=== PATIENT | female | born 1990 | race African-American/Black ===

== ENCOUNTER 2016-10-25 07:51 | Emergency (ER) | payer MEDICAID ==
[2016-10-25 08:21] LABS: BASOPHILS 0.3 % (0-2); EOSINOPHILS 2.2 % (0-7); HEMATOCRIT 37.4 % (36.0-48.0); HEMOGLOBIN 12.5 g/dL (12-16); IMMATURE GRANULOCYTES 0.7 % (0-5); LYMPHOCYTES 18.5 % (15-50); MCH 28.7 pg (26.0-34.0); MCHC 33.4 g/dL (31.0-37.0); MCV 85.8 fL (80.0-100.0); MEAN PLATELET VOLUME 9.5 fL (7.4-10.4); MONOCYTES 4.6 % (2-11); NEUTROPHILS 73.7 % (40-80); PLATELET COUNT 327 10x3/uL (130-400); RBC 4.36 10x6/uL (4.00-5.40); RDW 13.9 % (11.5-14.5); WBC 10.6 10x3/uL (4.8-10.8)
[2016-10-25 08:32] LABS: HCG URINE NEGATIVE (NEGATIVE)
[2016-10-25 08:43] LABS: ALKALINE PHOSPHATASE 101 U/L (46-116); ALT (SGPT) 18 U/L (10-68); BILIRUBIN - TOTAL 0.51 mg/dL (0.2-1.3); CALC OSMOLALITY 281 mosm/kg (275-300); CALCIUM 8.6 mg/dL (8.5-10.1); CARBON DIOXIDE 25.5 mmol/L (21.0-32.0); CHLORIDE - SERUM 106 mmol/L (98-107); CREATININE - SERUM 0.8 mg/dL (0.6-1.3); GLUCOSE 129 mg/dL (74-106); POTASSIUM - SERUM 4.1 mmol/L (3.5-5.1); PROTEIN - SERUM 7.4 g/dL (6.4-8.2); SODIUM 139 mmol/L (136-145); UREA NITROGEN 18 mg/dL (7-18); eGFR NON AFRICAN AMERICAN > 90 mL/min (90-120)
[2016-10-25 08:46] LABS: AMYLASE - SERUM 60 U/L (25-115); LIPASE 140 U/L (73-393)
[2016-10-25 08:57] LABS: TROPONIN-I < 0.017 ng/mL (0.000-0.060)
[2016-10-25 08:58] LABS: APPEARANCE HAZY (CLEAR); BILIRUBIN NEGATIVE (NEGATIVE); COLOR YELLOW (YELLOW); GLUCOSE NEGATIVE (NEGATIVE); KETONE NEGATIVE (NEGATIVE); LEUKOCYTE ESTERASE TRACE (NEGATIVE); NITRITE NEGATIVE (NEGATIVE); PROTEIN NEGATIVE (NEGATIVE); SPECIFIC GRAVITY 1.015 (1.005-1.020)
[2016-10-25 09:02] LABS: BACTERIA MANY /hpf (NONE SEEN); GRANULAR CAST RARE /lpf (NONE SEEN); MUCUS <1+ /lpf (NONE SEEN); RED CELLS - URINE 0-5 /hpf (0-5); WHITE CELLS - URINE 0-5 /hpf (0-5)
[2016-10-28 00:53] VITALS: BMI 47.1
== END 2016-10-25 10:13 | disposition home or self-care (01) ==
LOC: D.ER 07:51
PROVIDERS: Emergency Medicine
DX: K80.50 Calculus of bile duct without cholangitis or cholecystitis without obstruction (principal); R11.0 Nausea; R10.9 Unspecified abdominal pain

== ENCOUNTER 2016-10-27 20:46 | Inpatient (IN) | payer MEDICAID ==
[~2016-10-27] VITALS: Ht 162.6 cm; Wt 123.4 kg
[2016-10-27 21:41] LABS: BASOPHILS 0.1 % (0-2); IMMATURE GRANULOCYTES 0.4 % (0-5); LYMPHOCYTES 16.2 % (15-50); MCH 28.4 pg (26.0-34.0); MCHC 33.3 g/dL (31.0-37.0); MCV 85.3 fL (80.0-100.0); MEAN PLATELET VOLUME 9.6 fL (7.4-10.4); MONOCYTES 4.7 % (2-11); NEUTROPHILS 77.6 % (40-80); RBC 4.57 10x6/uL (4.00-5.40); WBC 13.9 10x3/uL (4.8-10.8)
[2016-10-27 21:53] LABS: PLATELET COUNT 400 10x3/uL (130-400)
[2016-10-27 21:54] LABS: ALBUMIN 3.2 g/dL (3.4-5.0); ALKALINE PHOSPHATASE 272 U/L (46-116); ALT (SGPT) 334 U/L (10-68); BILIRUBIN - TOTAL 4.16 mg/dL (0.2-1.3); CALC OSMOLALITY 281 mosm/kg (275-300); CALCIUM 9.1 mg/dL (8.5-10.1); CARBON DIOXIDE 27.6 mmol/L (21.0-32.0); CHLORIDE - SERUM 103 mmol/L (98-107); CREATININE - SERUM 0.8 mg/dL (0.6-1.3); GLUCOSE 127 mg/dL (74-106); POTASSIUM - SERUM 3.3 mmol/L (3.5-5.1); PROTEIN - SERUM 7.7 g/dL (6.4-8.2); SODIUM 141 mmol/L (136-145); UREA NITROGEN 9 mg/dL (7-18); eGFR NON AFRICAN AMERICAN > 90 mL/min (90-120)
[2016-10-27 22:04] LABS: APPEARANCE CLEAR (CLEAR); BILIRUBIN NEGATIVE (NEGATIVE); COLOR DK YELLOW (YELLOW); GLUCOSE NEGATIVE (NEGATIVE); KETONE NEGATIVE (NEGATIVE); LEUKOCYTE ESTERASE NEGATIVE (NEGATIVE); NITRITE NEGATIVE (NEGATIVE); PROTEIN TRACE mg/dL (NEGATIVE); RED CELLS - URINE 0-5 /hpf (0-5); SPECIFIC GRAVITY 1.015 (1.005-1.020); UROBILINOGEN NORMAL (NORMAL); WHITE CELLS - URINE 0-5 /hpf (0-5)
[2016-10-27 22:05] LABS: BACTERIA MODERATE /hpf (NONE SEEN); EPITHELIAL CELLS 0-5 /hpf (0-5)
[2016-10-27 23:08] LABS: AMYLASE - SERUM 2934 U/L (25-115); LIPASE 11618 U/L (73-393)
[2016-10-28] VITALS (7 sets, daily range): BP systolic 137–171; BP diastolic 82–97; Ht 162.6 cm; Wt 123.4 kg
--- NOTE | 2016-10-28 03:55 | NUR ---
EYES CLOSED RESPIRATIONS WITH EASE AND UNLABORED. SR UP X2 CALL LIGHT WITHIN REACH REMAINS NPO AT THIS TIME. ASSESSMENT DONE PER ADMIT PACKET.
--- NOTE | 2016-10-28 06:51 | NUR ---
REC'D REPORT FROM [facility] HEARD IN ER. REC'D VIA WHEELCHAIR, ALERT AND ORIENTED X4. REPORTED PAIN /. IV LEFT AC 20G WITH D5LR RUNNING. DENIED FURTHER NEEDS AT THIS TIME. INSTRUCTED TO CALL IF NEEDED ANYTHING, VERBALIZED UNDERSTANDING. BED LOW, LOCKED, CALL LIGHT IN REACH.
--- NOTE | 2016-10-28 07:19 | NUR ---
PATIENT RESTING IN HER BED. PATIENT IS AWAKE, ALERT, AND ORIENTED X4. FIRST OFFICER MORPHINE IN USE FOR PAIN CONTROL. PATIENT COMPLAINS OF NAUSEA, BUT NO EMESIS NOTED. CALL LIGHT IN PATIENT'S REACH. WILL MONITOR PATIENT.
[2016-10-28 08:39] LABS: BASOPHILS 0.1 % (0-2); EOSINOPHILS 0.7 % (0-7); HEMATOCRIT 35.7 % (36.0-48.0); HEMOGLOBIN 11.8 g/dL (12-16); IMMATURE GRANULOCYTES 0.3 % (0-5); LYMPHOCYTES 19.2 % (15-50); MCH 28.3 pg (26.0-34.0); MCHC 33.1 g/dL (31.0-37.0); MCV 85.6 fL (80.0-100.0); MEAN PLATELET VOLUME 9.2 fL (7.4-10.4); NEUTROPHILS 76.7 % (40-80); PLATELET COUNT 334 10x3/uL (130-400); RBC 4.17 10x6/uL (4.00-5.40); RDW 14.2 % (11.5-14.5)
[2016-10-28 08:55] LABS: WBC 8.7 10x3/uL (4.8-10.8)
[2016-10-28 09:13] LABS: ALBUMIN 2.6 g/dL (3.4-5.0); ALKALINE PHOSPHATASE 216 U/L (46-116); ALT (SGPT) 280 U/L (10-68); BILIRUBIN - TOTAL 1.54 mg/dL (0.2-1.3); CALC OSMOLALITY 276 mosm/kg (275-300); CALCIUM 8.2 mg/dL (8.5-10.1); CARBON DIOXIDE 27.1 mmol/L (21.0-32.0); CHLORIDE - SERUM 105 mmol/L (98-107); CREATININE - SERUM 0.8 mg/dL (0.6-1.3); GLUCOSE 119 mg/dL (74-106); POTASSIUM - SERUM 3.5 mmol/L (3.5-5.1); PROTEIN - SERUM 6.5 g/dL (6.4-8.2); SODIUM 139 mmol/L (136-145); UREA NITROGEN 7 mg/dL (7-18); eGFR NON AFRICAN AMERICAN > 90 mL/min (90-120)
[2016-10-28 09:15] LABS: BILIRUBIN - DIRECT 0.64 mg/dL (0.00-0.30)
[2016-10-28 09:16] LABS: LIPASE 3731 U/L (73-393)
[2016-10-28 09:18] LABS: AMYLASE - SERUM 613 U/L (25-115)
--- NOTE | 2016-10-28 10:03 | NUR ---
PATIENT RESTING QUIETLY WITH HER EYES CLOSED. PATIENT AWAKENS EASLY TO VERBAL STIMULI. ASSESSMENT COMPLETED. SEE FLOWSHEET FOR ANY DETAILS. PRODUCT MARKETING ENGINEER MORPHINE IN USE FOR PAIN CONTROL. PATIENT DENIES ANY NEEDS AT PRESENT TIME. CALL LIGHT IN PATIENT'S REACH. WILL MONITOR PATIENT.
--- NOTE | 2016-10-28 15:20 | NUR ---
PATIENT RESTING QUIETLY WITH HER EYES CLOSED. NO S/S OF DISTRESS NOTED. CALL LIGHT IN PATIENT'S REACH. WILL MONITOR PATIENT.
--- NOTE | 2016-10-28 19:30 | NUR ---
ASSESSMENT PER FLOW SHEET.PT WITHOUT DISTRESS.C/O ABDOMINAL/ UPPER EPIGASTRIC PAIN.INSTRUCTED BRICK SETTER USE.CALL LIGHT IN REACH
[2016-10-29] VITALS (11 sets, daily range): BP systolic 129–159; BP diastolic 71–94
--- NOTE | 2016-10-29 05:10 | NUR ---
HAS BEEN AWAKE FOR AWHILE. AND TWINS AT BEDSIDE FOR NIGHT.PT WITHOUT DISTRESS.WILL SHOWER FOR PROCEDURE TODAY.NPO
[2016-10-29 06:22] LABS: INR 1.04 (0.85-1.17); PROTIME 13.5 SECONDS (11.6-15.0)
[2016-10-29 06:46] LABS: ALBUMIN 2.6 g/dL (3.4-5.0); ALKALINE PHOSPHATASE 201 U/L (46-116); ALT (SGPT) 272 U/L (10-68); CALC OSMOLALITY 274 mosm/kg (275-300); CALCIUM 8.4 mg/dL (8.5-10.1); CARBON DIOXIDE 28.3 mmol/L (21.0-32.0); CHLORIDE - SERUM 104 mmol/L (98-107); CREATININE - SERUM 0.7 mg/dL (0.6-1.3); GLUCOSE 120 mg/dL (74-106); LIPASE 970 U/L (73-393); POTASSIUM - SERUM 3.5 mmol/L (3.5-5.1); PROTEIN - SERUM 6.5 g/dL (6.4-8.2); SODIUM 138 mmol/L (136-145); UREA NITROGEN 6 mg/dL (7-18); eGFR NON AFRICAN AMERICAN > 90 mL/min (90-120)
[2016-10-29 06:55] LABS: AMYLASE - SERUM 252 U/L (25-115)
--- NOTE | 2016-10-29 07:25 | NUR ---
PATIENT RECEIVED IN MID RUIZ POSITION RESTING WITH EYES CLOSED. RESPIRATIONS EVEN AND UNLABORED. SIDE RAILS UP X2. BED IN LOW POSITION. CALL LIGHT IN REACH.
--- NOTE | 2016-10-29 08:15 | NUR ---
PATIENT RESTING QUIETLY WITH EYES CLOSED. RESPIRATIONS EVEN AND UNLABORED. WAKES EASY. SCHEDULED MEDICATION ADMINISTERED. CONSENT OBTAINED FOR ERCP. DENIES NEEDS. BED IN LOW POSITION. SIDE RAILS UP X2. CALL LIGHT AND DREDGE LEVER OPERATOR BUTTON IN REACH.
--- NOTE | 2016-10-29 11:00 | NUR ---
ALERT IN HIGH RUIZ POSITION. NO SIGNS OF DISTRESS NOTED. DENIES NEEDS. BED IN LOW POSITION. SIDE RAILS UP X2. CALL LIGHT AND CARCASS WASHER BUTTON IN REACH.
--- NOTE | 2016-10-29 14:00 | NUR ---
PATIENT OFF FLOOR TO GI LAB VIA BED
--- NOTE | 2016-10-29 15:10 | NUR ---
1 MINUTE 11 SECONDS FLUOROSCOPY TIME. BILE DUCT DILATED WITH 4.5 ALGERIAN BILIARY BALLOON TO 12 ALGERIAN. 24 CC CONTRAST USED
--- NOTE | 2016-10-29 15:40 | NUR ---
PATIENT BACK TO ROOM FROM GI LAB. NO SIGNS OF DISTRESS NOTED. VITAL SIGNS STABLE. DENIES NEEDS. SIDE RAILS UP X2. BED IN LOW POSITION. CALL LIGHT IN REACH.
--- NOTE | 2016-10-29 17:30 | NUR ---
PATIENT ALERT IN BED. NO SIGNS OF DISTRESS NOTED. DENIES NEEDS. SIDE RAILS UP X2. BED IN LOW POSITION. CALL LIGHT IN REACH.
--- NOTE | 2016-10-29 19:15 | NUR ---
RECEIVED CARE FROM DAY NURSE. PT SITTING UP IN BED. IV INFUSING TO LEFT FA PATENT IV. REPORTS NO NEEDS. CALL LIGHT AT SIDE.
--- NOTE | 2016-10-29 23:38 | NUR ---
PT SITTING UP IN BED. RECENT OF TWINS. BABIES IN ROOM WITH PT. PT REPORTS NO NEEDS. CALL LIGHT AT SIDE.
[2016-10-30] VITALS: BP 160/82
--- NOTE | 2016-10-30 00:14 | NUR ---
IV TO LEFT FA AREA SWOLLEN. DC'D WITH TIP INTACT. RESITED TO LEFT HAND X2 STICKS. 22 GAUGE WITH GOOD BLOOD RETURN.
--- NOTE | 2016-10-30 03:36 | NUR ---
ASSESSED, PT IS ASLEEP WITH BOTH BABIES AND AT THE BEDSIDE. SHE HAS EASY RESPIRATIONS AND NO DISTRESS NOTED. THE BED IS LOW, RAILS UP X'2 WITH THE CALL LIGHT AT HAND.
[2016-10-30 04:00] VITALS: BP 137/76
[2016-10-30 06:32] LABS: BASOPHILS 0.1 % (0-2); EOSINOPHILS 0.1 % (0-7); HEMATOCRIT 33.2 % (36.0-48.0); HEMOGLOBIN 10.9 g/dL (12-16); IMMATURE GRANULOCYTES 0.4 % (0-5); LYMPHOCYTES 12.2 % (15-50); MCH 28.1 pg (26.0-34.0); MCHC 32.8 g/dL (31.0-37.0); MCV 85.6 fL (80.0-100.0); MEAN PLATELET VOLUME 9.8 fL (7.4-10.4); MONOCYTES 4.5 % (2-11); NEUTROPHILS 82.7 % (40-80); PLATELET COUNT 376 10x3/uL (130-400); RBC 3.88 10x6/uL (4.00-5.40); RDW 13.7 % (11.5-14.5); WBC 10.3 10x3/uL (4.8-10.8)
[2016-10-30 06:47] LABS: ALBUMIN 2.5 g/dL (3.4-5.0); ALKALINE PHOSPHATASE 172 U/L (46-116); ALT (SGPT) 226 U/L (10-68); AMYLASE - SERUM 81 U/L (25-115); BILIRUBIN - TOTAL 0.84 mg/dL (0.2-1.3); CALC OSMOLALITY 277 mosm/kg (275-300); CALCIUM 8.5 mg/dL (8.5-10.1); CARBON DIOXIDE 27.3 mmol/L (21.0-32.0); CHLORIDE - SERUM 105 mmol/L (98-107); CREATININE - SERUM 0.6 mg/dL (0.6-1.3); GLUCOSE 133 mg/dL (74-106); LIPASE 167 U/L (73-393); POTASSIUM - SERUM 3.7 mmol/L (3.5-5.1); PROTEIN - SERUM 6.6 g/dL (6.4-8.2); SODIUM 140 mmol/L (136-145); UREA NITROGEN 5 mg/dL (7-18); eGFR NON AFRICAN AMERICAN > 90 mL/min (90-120)
[2016-10-30 07:05] VITALS: BP 122/81
--- NOTE | 2016-10-30 07:20 | NUR ---
PATIENT RECEVED ALERT IN HIGH RUIZ POSITION WITH FAMILY AT BEDSIDE. NO SIGNS OF DISTRESS NOTED. DENIES NEEDS. SIDE RAILS UP X2. BED IN LOW POSITIN. CALL LIGHT IN REACH.
--- NOTE | 2016-10-30 08:27 | NUR ---
PATIENT ALERT IN BED WITH FAMILY PRESENT. SCHEDULED MEDICATION ADMINISTERED. SIDE RAILS UP X2. BED IN LOW POSITION. CALL LIGHT IN REACH. DENIES NEEDS.
--- NOTE | 2016-10-30 11:00 | NUR ---
IVF RATE DECREASED PER ORDER. SCHEDULED IV ABX INITIATED. DENIES NEEDS. FAMILY PRESENT. BED IN LOW POSITION. CALL LIGHT IN REACH.
[2016-10-30 13:07] VITALS: BP 137/78
--- NOTE | 2016-10-30 14:00 | NUR ---
PATIENT IN MID RUIZ POSITION RESTING QUIETLY WITH EYES CLOSED. RESPIRATIONS EVEN AND UNLABORED. BED IN LOW POSITION. SIDE RAILS UP X2. CALL LIGHT IN REACH.
--- NOTE | 2016-10-30 16:40 | NUR ---
ALERT IN HIGH RUIZ POSITION. NO SIGNS OF DISTRESS NOTED. IV TUBING CHANGED PER PROTOCOL. TOLERATING FLD. BED IN LOW POSITION. CALL LIGHT AND PHP ARCHITECT BUTTON IN REACH.
--- NOTE | 2016-10-30 19:15 | NUR ---
RECEIVED PT FROM DAY SHIFT NURSE. PT SIITING UP IN BED WITH COMPANY AT SIDE. REPORTS NO NEEDS. CALL LIGHT AT SIDE. IV INFUSING TO PATENT IV IN LEFT HAND.
[2016-10-30 20:03] VITALS: BP 133/68
--- NOTE | 2016-10-30 23:40 | NUR ---
PT REPORTS PAIN FROM IV. RETURN CHECKED WITH SMALL AMOUNT OF RETURN NOTED. NO SWELLING TO AREA. ABX ARE INFUSING AT THIS TIME. IV WAS FLUSHED WITH NS WITH NO PAIN NOTED. ABX COMPLETED WHILE NURSE WAS IN THE ROOM. INSTRUCTED PT TO CALL IF PAIN DID NOT IMPROVE POST ABX FLUSHING THROUGH LINE.
[2016-10-30 23:48] VITALS: BP 142/73
--- NOTE | 2016-10-31 03:22 | NUR ---
PATIENT RESTING WITH EYES CLOSED AND NO VISIBLE SIGNS OF DISTRESS. BED IN LOWEST POSITION AND CALL LIGHT WITHIN REACH.
[2016-10-31 04:06] VITALS: BP 140/72
--- NOTE | 2016-10-31 04:10 | NUR ---
RESTING WITH EYES CLOSED. RESP EVEN AND UNLABORED. IV INFUSING TO PATENT IV.
[2016-10-31 04:49] LABS: BASOPHILS 0.4 % (0-2); EOSINOPHILS 2.2 % (0-7); HEMATOCRIT 32.4 % (36.0-48.0); HEMOGLOBIN 10.4 g/dL (12-16); IMMATURE GRANULOCYTES 0.9 % (0-5); LYMPHOCYTES 32.8 % (15-50); MCH 27.8 pg (26.0-34.0); MCHC 32.1 g/dL (31.0-37.0); MCV 86.6 fL (80.0-100.0); MEAN PLATELET VOLUME 9.7 fL (7.4-10.4); MONOCYTES 6.7 % (2-11); PLATELET COUNT 333 10x3/uL (130-400); RBC 3.74 10x6/uL (4.00-5.40); RDW 14.1 % (11.5-14.5); WBC 8.2 10x3/uL (4.8-10.8)
[2016-10-31 05:07] LABS: ALBUMIN 2.3 g/dL (3.4-5.0); ALKALINE PHOSPHATASE 147 U/L (46-116); BILIRUBIN - TOTAL 0.48 mg/dL (0.2-1.3); CALCIUM 8.1 mg/dL (8.5-10.1); CARBON DIOXIDE 27.7 mmol/L (21.0-32.0); CHLORIDE - SERUM 106 mmol/L (98-107); CREATININE - SERUM 0.7 mg/dL (0.6-1.3); GLUCOSE 118 mg/dL (74-106); LIPASE 132 U/L (73-393); POTASSIUM - SERUM 3.8 mmol/L (3.5-5.1); PROTEIN - SERUM 6.1 g/dL (6.4-8.2); SODIUM 142 mmol/L (136-145); eGFR NON AFRICAN AMERICAN > 90 mL/min (90-120)
[2016-10-31 05:12] LABS: ALT (SGPT) 160 U/L (10-68); AMYLASE - SERUM 50 U/L (25-115); CALC OSMOLALITY 282 mosm/kg (275-300); UREA NITROGEN 9 mg/dL (7-18)
--- NOTE | 2016-10-31 08:00 | NUR ---
WITHOUT DISTRESS AT PRESENT.DENIES NEEDS.CALL LIGHT IN REACH
--- NOTE | 2016-10-31 08:30 | NUR ---
DENIES NEEDS, NO DISTRESS NOTED, BED LOWEST POSITION, CALL LIGHT IN REACH, WILL CONTINUE TO MONITOR
[2016-10-31 10:00] VITALS: BP 148/90
[2016-10-31 12:20] VITALS: BP 149/93
[2016-10-31 16:06] VITALS: BP 130/94
[2016-10-31 20:00] VITALS: BP 144/89
--- NOTE | 2016-11-01 02:09 | NUR ---
PT SLEEPING. RESP EVEN, UNLABORED. NO DISTRESS NOTED. CONTINUE ANATOMICAL EMBALMER'S PLAN OF CARE.
[2016-11-01 04:00] VITALS: BP 132/78
[2016-11-01 04:51] LABS: BASOPHILS 0.4 % (0-2); EOSINOPHILS 3.2 % (0-7); HEMOGLOBIN 11.3 g/dL (12-16); IMMATURE GRANULOCYTES 0.7 % (0-5); LYMPHOCYTES 28.2 % (15-50); MCH 27.6 pg (26.0-34.0); MCHC 32.3 g/dL (31.0-37.0); MCV 85.6 fL (80.0-100.0); MEAN PLATELET VOLUME 9.4 fL (7.4-10.4); MONOCYTES 5.9 % (2-11); NEUTROPHILS 61.6 % (40-80); PLATELET COUNT 378 10x3/uL (130-400); RBC 4.09 10x6/uL (4.00-5.40); RDW 13.6 % (11.5-14.5)
[2016-11-01 05:09] LABS: ALBUMIN 2.4 g/dL (3.4-5.0); ALKALINE PHOSPHATASE 153 U/L (46-116); ALT (SGPT) 122 U/L (10-68); AMYLASE - SERUM 44 U/L (25-115); BILIRUBIN - TOTAL 0.54 mg/dL (0.2-1.3); CALCIUM 8.4 mg/dL (8.5-10.1); CARBON DIOXIDE 29.6 mmol/L (21.0-32.0); CHLORIDE - SERUM 105 mmol/L (98-107); CREATININE - SERUM 0.7 mg/dL (0.6-1.3); GLUCOSE 118 mg/dL (74-106); LIPASE 113 U/L (73-393); POTASSIUM - SERUM 3.9 mmol/L (3.5-5.1); PROTEIN - SERUM 6.4 g/dL (6.4-8.2); SODIUM 142 mmol/L (136-145); eGFR NON AFRICAN AMERICAN > 90 mL/min (90-120)
[2016-11-01 05:10] LABS: CALC OSMOLALITY 281 mosm/kg (275-300); UREA NITROGEN 6 mg/dL (7-18)
--- NOTE | 2016-11-01 07:20 | NUR ---
REPORT RECEIVED FROM NURSE SHIFT NURSE. CALL LIGHT IN REACH.
--- NOTE | 2016-11-01 08:10 | NUR ---
FEELING NERVOUS BEFORE PROCEDURE THIS AM. BP 163/121. HYDRALAZINE GIVEN SLOW IVP.
--- NOTE | 2016-11-01 08:26 | NUR ---
ASSESSMENT COMPLETED. PREOP MEDS ADMINISTERED. IV HYDRALAZINE ALSO ADMINISTERED PER KIN MORALES, FOR HIGH BP. OFFERED SCDs BUT REFUSED. TONGUE RING AND UNDERWEAR REMOVED. CALL LIGHT IN REACH. WILL CONTINUE WITH PLAN OF CARE.
[2016-11-01 08:31] VITALS: BP 163/121
--- NOTE | 2016-11-01 09:05 | NUR ---
TO OR VIA BED.
[2016-11-01 09:47] LABS: HCG SERUM NEGATIVE (NEGATIVE)
--- NOTE | 2016-11-01 11:00 | NUR ---
STILL IN OR AT THIS TIME.
[2016-11-01] MEDS ORDERED: HYDROCODON-ACE1 EAC7 PO (11:01)
[2016-11-01 12:05] VITALS: BP 150/82
--- NOTE | 2016-11-01 12:08 | NUR ---
PT RETURNED FROM PACU PER BED. VS STABLE. NO COMPLAINTS OF PAIN OR DISCOMFORT AT PRESENT-DRIFTS BACK TO SLEEP IF NOT TALKING. OXYGEN AT 2LNC. LAT SITES X 2 NOTED. CALL LIGHT IN REACH
--- NOTE | 2016-11-01 12:47 | NUR ---
ZOFRAN 4 MG SIVP PER C/O NAUSEA AFTER GIVING FLORAJEN AND NORCO. IV ABX INITIATED. REFUSES LOVENOX. HAS ALREADY VOIDED 400 CC URINE AFTER SURGERY.
--- NOTE | 2016-11-01 12:57 | NUR ---
Patient Name: ARAMIS TUCKER Admission Status: ER Accout number: [id number] Admission Date: 10-27-2016 : 1990 Admission Diagnosis:BILIARY ACUTE PANCREATITIS WITHOUT NECROSIS OR INFECTIO Attending: TONJA SALEH Current LOS: 5 Anticipated DC Date: 11-01-2016 Planned Disposition: Home Primary Insurance: MEDICAID [place] Discharge Planning Comments: CM MET WITH PATIENT REGARDING D/C NEEDS AND PLANS. PATIENT IS DISCHARGING HOME TODAY TO HER MOTHERS AND HER FRIEND (ISAMAR) WILL DRIVE HER THERE. THERE IS ONE STEP TO ENTER HOME AND NO STAIRS INSIDE. PATIENT IS INDEPENDENT WITH HER CARE AND HAS NO DME AT HOME. PATIENTS PCP IS [facility] IN [facility] AND USES [facility]. PATIENT IS REFUSING HOME HEALTH AND HAS NO NEEDS FOR DISCHARGE. CM WILL CONTINUE TO FOLLOW PATIENT WITH D/C NEEDS AND PLANS. PCP [facility] ([facility]) [facility] ([facility]) [phone] ISAMAR (FRIEND) [phone] Regional Truck Driver: Nely Lomax Is the patient Alert and Oriented? Yes 0 * How many steps to enter\exit or inside your home? 1 0 * PCP [facility] IN [place] 0 * Pharmacy [facility] 0 * Preadmission Environment Home with Family 0 * ADLs Independent 0 * Equipment None 0 * List name and contact numbers for known caregivers / representatives who currently or will assist patient after discharge: SHERINE (FRIEND) [phone] 0 * Community resources currently utilized None 0 * Additional services required to return to the preadmission environment? Yes 0 * Can the patient safely return to the preadmission environment? Yes 0 * Has this patient been hospitalized within the prior 30 days at any hospital? No 0 Grand Total: 0
--- NOTE | 2016-11-01 14:40 | NUR ---
HAS AMBULATED IN HALLWAY AND EATEN A REGULAR DIET. IV DC'D WITH TIP INTACT.
--- NOTE | 2016-11-01 15:52 | NUR ---
DC INSTRUCTIONS EXPLAINED TO PATIENT AND SIGNIFICANT OTHER. VERBALIZED UNDERSTANDING. RX FOR NORCO HANDED TO PATIENT. DC'D TO VEHICLE VIA WC WITH SIGNIFICANT OTHER.
== END 2016-11-01 15:52 | disposition home or self-care (01) | DRG 418 ==
LOC: D.ER 20:46 → D.MS 22:50
PROVIDERS: Emergency Medicine; Internal Medicine Gastroenterology; Nurse Practitioner Family; ADMIT Surgery
PROC: 0F798ZZ Dilation of Common Bile Duct, Via Natural or Artificial Opening Endoscopic (ICD-10-PCS; 2016-10-29)
PROC: 0FT44ZZ Resection of Gallbladder, Percutaneous Endoscopic Approach (ICD-10-PCS; principal; 2016-11-01 10:15)
DX: K85.10 Biliary acute pancreatitis without necrosis or infection (principal); Z68.42 Body mass index [BMI] 45.0-49.9, adult; K80.50 Calculus of bile duct without cholangitis or cholecystitis without obstruction; Z87.891 Personal history of nicotine dependence; E66.9 Obesity, unspecified

== ENCOUNTER 2018-05-16 21:20 | Emergency (ER) | payer MEDICAID ==
[~2018-05-16] VITALS: Ht 162.6 cm; Wt 145.0 kg
[~2018-05-16 21:20] MED LIST: HYDROCODON-ACE1 EAC7 PO
[2018-05-16 21:26] VITALS: Ht 162.6 cm; Wt 145.0 kg
[2018-05-16 21:58] LABS: BASOPHILS 0.3 % (0-2); EOSINOPHILS 1.4 % (0-7); HEMATOCRIT 34.9 % (36.0-48.0); HEMOGLOBIN 11.7 g/dL (12-16); IMMATURE GRANULOCYTES 0.8 % (0-5); LYMPHOCYTES 22.9 % (15-50); MCHC 33.5 g/dL (31.0-37.0); MCV 83.5 fL (80.0-100.0); MEAN PLATELET VOLUME 9.4 fL (7.4-10.4); NEUTROPHILS 69.6 % (40-80); PLATELET COUNT 321 10x3/uL (130-400); RBC 4.18 10x6/uL (4.00-5.40); RDW 13.9 % (11.5-14.5); WBC 11.7 10x3/uL (4.8-10.8)
[2018-05-16 22:00] LABS: APPEARANCE CLEAR (CLEAR); BILIRUBIN NEGATIVE (NEGATIVE); COLOR YELLOW (YELLOW); GLUCOSE NEGATIVE (NEGATIVE); KETONE NEGATIVE (NEGATIVE); NITRITE NEGATIVE (NEGATIVE); PROTEIN NEGATIVE (NEGATIVE); UROBILINOGEN NORMAL (NORMAL)
[2018-05-16 22:02] LABS: BACTERIA MANY /hpf (NONE SEEN); EPITHELIAL CELLS 0-5 /hpf (0-5); MUCUS <1+ /lpf (NONE SEEN); RED CELLS - URINE 0-5 /hpf (0-5); WHITE CELLS - URINE 0-5 /hpf (0-5)
[2018-05-16 22:06] LABS: HCG URINE POSITIVE (NEGATIVE)
[2018-05-16 22:19] LABS: ALBUMIN 3.1 g/dL (3.4-5.0); ALKALINE PHOSPHATASE 73 U/L (46-116); ALT (SGPT) 17 U/L (10-68); BILIRUBIN - TOTAL 0.48 mg/dL (0.2-1.3); CALC OSMOLALITY 273 mosm/kg (275-300); CALCIUM 8.5 mg/dL (8.5-10.1); CARBON DIOXIDE 25.3 mmol/L (21.0-32.0); CHLORIDE - SERUM 100 mmol/L (98-107); CREATININE - SERUM 0.7 mg/dL (0.6-1.3); GLUCOSE 125 mg/dL (74-106); POTASSIUM - SERUM 3.7 mmol/L (3.5-5.1); PROTEIN - SERUM 7.4 g/dL (6.4-8.2); SODIUM 137 mmol/L (136-145); UREA NITROGEN 10 mg/dL (7-18); eGFR NON AFRICAN AMERICAN > 90 mL/min (90-120)
[2018-05-16 22:44] LABS: HCG - QUANTITATIVE (MATERNAL) 58234 mIU/mL
[2018-05-17 03:47] VITALS: BP 132/79
== END 2018-05-17 03:47 | disposition home or self-care (01) ==
LOC: D.ER 21:20
PROVIDERS: Family Medicine
DX: O26.851 Spotting complicating pregnancy, first trimester (principal); Z3A.08 8 weeks gestation of pregnancy